=== PATIENT | male | born 1965 | race Caucasian/White ===

== ENCOUNTER 2020-01-03 07:50 | Day surgery (SDC) | payer OTHER ==
[2020-01-02 09:57] VITALS: BMI 31.1
[2020-01-03] MEDS ORDERED: ONDANSETRON 4 MG/2 ML VIAL ONE (09:17)
[2020-01-03] MEDS ORDERED: DEXAMETHASONE SOD PHOSPHATE 4 MG/1 ML VIAL ONE (09:17)
[2020-01-03] MEDS ORDERED: SODIUM CHLORIDE 0.9% P/F 10 ML VIAL IJ ONE ×2 (09:17→09:20)
[2020-01-03] MEDS ORDERED: LIDOCAINE HCL/PF 2% SDV 5ML VIAL ONE (09:17)
[2020-01-03] MEDS ORDERED: ceFAZolin SODIUM 1 GM VIAL ONE (09:17)
[2020-01-03] MEDS ORDERED: PROPOFOL 20 ML ONE ×3 (09:18→10:31)
[2020-01-03] MEDS ORDERED: MIDAZOLAM HCL 2 MG/2 ML SINGLE DOSE VIAL ONE (09:19)
[2020-01-03] MEDS ORDERED: BUPIVACAINE LIPOSOME/PF (EXPAREL) 266 MG/20 ML VIAL ONE (09:20)
[2020-01-03] MEDS ORDERED: KETAMINE HCL 200 MG/20 ML VIAL ONE (10:12)
[2020-01-03] MEDS ORDERED: oxyCODONE HCL 5 MG TABLET PO PRN (11:12)
[2020-01-03] MEDS ORDERED: LACTATED RINGERS SOLUTION 1,000 ML IV SCH (11:15)
[2020-01-03 11:18] VITALS: TEMP 97.5
[2020-01-03] MEDS ORDERED: LOCK ITEM NR ONE (11:27)
[2020-01-04 08:44] VITALS: BP 130/80; PULSE 72
== END 2020-01-03 14:40 | disposition home or self-care (01) ==
LOC: FASU 07:50
PROVIDERS: ATTEND Orthopaedic Surgery
PROC: 0LQN0ZZ Repair Right Lower Leg Tendon, Open Approach (ICD-10-PCS; principal; 2020-01-03 09:30)
DX: S86.011A Strain of right Achilles tendon, initial encounter (principal); X58.XXXA Exposure to other specified factors, initial encounter; Y93.9 Activity, unspecified; Y92.9 Unspecified place or not applicable
CPT/HCPCS: 94760